=== PATIENT | male | born 1950 | race Hispanic/Latino ===

== ENCOUNTER 2017-04-05 16:42 | Emergency (ER) | payer MEDICARE ==
[2017-04-05 17:16] VITALS: BP 150/66; PULSE 68; RESP 16; TEMP 98.5; O2SAT 100
--- NOTE | 2017-04-05 18:07 | ED PDOC ---
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 Patient describes dizziness as a spinning sensation that suddenly got worse as he tries to move his head. Upon arrival to the ED, he states his dizziness started to mildly resolve on its own, but he is experiencing an associated mild headache that also has started to resolve spontaneously. He denies any associated syncope , palpitations, tinnitus, or vomiting. He further states this is not the "worse headache of his life". Past Medical History Vital Signs: Last Vital Signs Temp 98.5 F 04/05/17 17:11 Pulse 68 04/05/17 17:11 Resp 16 04/05/17 17:11 BP 150/66 04/05/17 17:11 Pulse Ox 100 04/05/17 17:11 - Medical History PMH: Diabetes, Deep Vein Thrombosis, HTN, Hypercholesterolemia - Surgical History Surgical History: No Surg Hx - Family History Family History: States: Unknown Family Hx - Social History Current smoker - smoking cessation education provided: No Alcohol: None Drugs: Denies - Immunization History Hx Tetanus Toxoid Vaccination: No Hx Influenza Vaccination: Yes Hx Pneumococcal Vaccination: Yes - Home Medications Home Medications: Ambulatory Orders Medication Instructions Recorded Lisinopril [Zestril] 10 mg PO DAILY 07/31/16 MetFORMIN [glucOPHAGE] 1,000 mg PO BID 07/31/16 Pravastatin Sodium [Pravachol] 10 mg PO DAILY 07/31/16 Glimepiride [Amaryl] 4 mg PO BID 08/09/16 Naproxen [Naprosyn] 1 tab PO BID PRN #25 tab 08/25/16 Meclizine [Meclizine*] 25 mg PO Q6 PRN #15 tab 04/05/17 - Allergies Allergies/Adverse Reactions: Allergies Allergy/AdvReac Type Severity Reaction Status Date / Time No Known Allergies Allergy Verified 04/05/17 17:11 Review of Systems ROS Statement: Except As Marked, All Systems Reviewed And Found Negative ENT: Negative for: Ear Pain Cardiovascular: Negative for: Palpitations Gastrointestinal: Negative for: Vomiting Neurological: Positive for: Headache, Dizziness Physical Exam - Reviewed Nursing Documentation Reviewed: Yes Vital Signs Reviewed: Yes - Physical Exam Appears: Positive for: Non-toxic, No Acute Distress Head Exam: Positive for: ATRAUMATIC, NORMOCEPHALIC Skin: Positive for: Normal Color. Negative for: Rash Eye Exam: Positive for: Normal appearance, EOMI, PERRL ENT: Positive for: Normal ENT Inspection. Negative for: Pharyngeal Erythema, Tonsillar Exudate, Tonsillar Swelling Neck: Positive for: Normal, Painless ROM, Supple Cardiovascular/Chest: Positive for: Regular Rate, Rhythm. Negative for: Murmur Respiratory: Positive for: Normal Breath Sounds. Negative for: Wheezing, Respiratory Distress Gastrointestinal/Abdominal: Positive for: Normal Exam, Soft. Negative for: Tenderness Extremity: Positive for: Normal ROM. Negative for: Deformity, Swelling Neurologic/Psych: Positive for: Alert, Oriented. Negative for: Motor/Sensory Deficits - Laboratory Results Result Diagrams: 04/05/17 17:50 04/05/17 17:50 - ECG O2 Sat by Pulse Oximetry: 100 - Progress Re-evaluation Time: 21:10 Condition: Re-examined, Improved Medical Decision Making Medical Decision Makin:18 Initial Impression- Vertigo; Differential diagnosis includes but not limited to : Central Vertigo (less likely but may include cerebellar stroke) vs. Peripheral Vertigo (most likely based on H&P, but possible diagnosis includes vestibular syndrome and BPV). R/o cardiac arrhythmia Initial Plan- * CT Head w/o contrast * EKG * BMP * Troponin * CBC w/ differential * Antivert 25 mg PO FINDINGS: HEMORRHAGE: No intracranial hemorrhage. BRAIN: No mass effect or edema. Mild diffuse atrophy. No evidence of acute infarct. VENTRICLES: Unremarkable. No hydrocephalus. CALVARIUM: Unremarkable. PARANASAL SINUSES: Unremarkable as visualized. No significant inflammatory changes. MASTOID AIR CELLS: Unremarkable as visualized. No inflammatory changes. OTHER FINDINGS: None. IMPRESSION: No intracranial mass, hemorrhage or evidence of acute infarct Documented by Antonio Edmond, acting as a scribe for Aung Lagunas MD. All medical record entries made by the Scribe were at my direction and personally dictated by me. I have reviewed the chart and agree that the record accurately reflects my personal performance of the history, physical exam, medical decision making, and the department course for this patient. I have also personally directed, reviewed, and agree with the discharge instructions and disposition. Disposition - Clinical Impression Clinical Impression: Dizziness - Patient ED Disposition Is Patient to be Admitted: No Doctor Will See Patient In The: Office Counseled Patient/Family Regarding: Studies Performed, Diagnosis, Need For Followup - Disposition Referrals: [facility] [Outside] Disposition: Routine/Home Disposition Time: 21:10 Condition: GOOD Additional Instructions: Follow up with your PCP in 2-3 days. Prescriptions: Meclizine [Meclizine*] 25 mg PO Q6 PRN #15 tab PRN Reason: Dizziness Instructions: Vertigo (ED)
[2017-04-05 18:12] LABS: BASO % 0.1 % (0.0-2.0); EOS # 0.1 K/uL (0.0-0.7); EOS % 1.3 % (0.0-4.0); LYMPH # 1.1 K/uL (1.0-4.3); LYMPH % 15.5 % (20.0-40.0); MEAN CELL VOLUME 89.3 fl (80.0-94.0); MEAN CORPUSCULAR HEMOGLOBIN 29.5 pg (27.0-31.0); MEAN PLATELET VOLUME 7.9 fl (7.2-11.7); MONO # 0.6 K/uL (0.0-0.8); MONO % 7.9 % (0.0-10.0); NEUT # 5.3 K/uL (1.8-7.0); NEUT % 75.2 % (50.0-75.0); NRBC % 0.1 % (0.0-0.0); RBC 4.76 Mil/uL (4.40-5.90); RED CELL DISTRIBUTION WIDTH 13.7 % (11.5-14.5); WHITE BLOOD COUNT 7.1 K/uL (4.8-10.8)
[2017-04-05 18:25] LABS: BLOOD UREA NITROGEN 10 mg/dl (9-20); CALCIUM 9.5 mg/dL (8.4-10.2); GFR AFRICAN-AMERICAN > 60; GFR NON-AFRICAN AMERICAN > 60
--- NOTE | 2017-04-05 18:35 | CT ---
PROCEDURE: CT HEAD WITHOUT CONTRAST. HISTORY: dizziness COMPARISON: Not available TECHNIQUE: Axial computed tomography images were obtained through the head/brain without intravenous contrast. Radiation dose: Total exam DLP = 877.25 mGy-cm. This CT exam was performed using one or more of the following dose reduction techniques: Automated exposure control, adjustment of the mA and/or kV according to patient size, and/or use of iterative reconstruction technique. FINDINGS: HEMORRHAGE: No intracranial hemorrhage. BRAIN: No mass effect or edema. Mild diffuse atrophy. No evidence of acute infarct. VENTRICLES: Unremarkable. No hydrocephalus. CALVARIUM: Unremarkable. PARANASAL SINUSES: Unremarkable as visualized. No significant inflammatory changes. MASTOID AIR CELLS: Unremarkable as visualized. No inflammatory changes. OTHER FINDINGS: None. IMPRESSION: No intracranial mass, hemorrhage or evidence of acute infarct.
--- NOTE | 2017-04-07 11:47 | CARD ---
APPROVED REPORT EKG Measurement Heart [id number] <Conclusion> Sinus bradycardia Otherwise normal ECG
== END 2017-04-05 21:57 | disposition home or self-care (01) ==
LOC: H.ER 16:42
DX: R42 Dizziness and giddiness (principal); E11.9 Type 2 diabetes mellitus without complications; E78.00 Pure hypercholesterolemia, unspecified; I10 Essential (primary) hypertension; Z79.84 Long term (current) use of oral hypoglycemic drugs; Z86.718 Personal history of other venous thrombosis and embolism; Z79.899 Other long term (current) drug therapy

== ENCOUNTER 2017-06-19 22:22 | Emergency (ER) | payer MEDICARE ==
[2017-06-19] MEDS ORDERED: Sodium Chloride 0.9% 500 ML IV STA (22:49)
--- NOTE | 2017-06-19 22:58 | ED PDOC ---
Hyperglycemia/Hypoglycemia Time Seen by Provider: 06/19/17 22:47 Chief Complaint (Nursing): Abnormal Labs : The patient does not have any of the infectious symptoms listed except for those marked. Additional Complaint(s): 67yo M nonsmoker with PMHx DMT2 and HTN c/o accucheck at home 53 after dinner. Usually check BS after dinners. Denies any symptoms related to hypoglycemia; denies nausea, vomiting, dizziness, lightheadedness. Compliant with medications including glimiperide AM, januvia AM, metformin BID, lisinopril. Was able to walk to the ED 13-15 blocks, denies chest pain, SOB, GARZA. Denies falls. PCP Dr. Mullins Past Medical History Reviewed: Historical Data, Nursing Documentation, Vital Signs Vital Signs: Last Vital Signs Temp 97.7 F 06/19/17 22:24 Pulse 78 06/19/17 22:24 Resp 26 H 06/19/17 22:24 BP 150/80 06/19/17 22:24 Pulse Ox 98 06/19/17 22:24 - Medical History PMH: Diabetes, Deep Vein Thrombosis, HTN, Hypercholesterolemia - Surgical History Surgical History: No Surg Hx - Family History Family History: States: Unknown Family Hx - Social History Current smoker - smoking cessation education provided: No - Immunization History Hx Tetanus Toxoid Vaccination: No Hx Influenza Vaccination: Yes Hx Pneumococcal Vaccination: Yes - Home Medications Home Medications: Ambulatory Orders Medication Instructions Recorded Lisinopril [Zestril] 10 mg PO DAILY 07/31/16 MetFORMIN [glucOPHAGE] 1,000 mg PO BID 07/31/16 Pravastatin Sodium [Pravachol] 10 mg PO DAILY 07/31/16 Glimepiride [Amaryl] 4 mg PO BID 08/09/16 Naproxen [Naprosyn] 1 tab PO BID PRN #25 tab 08/25/16 Meclizine [Meclizine*] 25 mg PO Q6 PRN #15 tab 04/05/17 - Allergies Allergies/Adverse Reactions: Allergies Allergy/AdvReac Type Severity Reaction Status Date / Time No Known Allergies Allergy Verified 06/19/17 22:24 Review of Systems ROS Statement: Except As Marked, All Systems Reviewed And Found Negative Physical Exam - Reviewed Nursing Documentation Reviewed: Yes Vital Signs Reviewed: Yes - Physical Exam Appears: Positive for: Well, Non-toxic, No Acute Distress Head Exam: Positive for: ATRAUMATIC, NORMAL INSPECTION Skin: Positive for: Warm, Dry Eye Exam: Positive for: Normal appearance, EOMI ENT: Negative for: Pharyngeal Erythema, Tonsillar Exudate Neck: Positive for: Normal, Supple Cardiovascular/Chest: Positive for: Regular Rate, Rhythm. Negative for: Murmur Respiratory: Positive for: Normal Breath Sounds. Negative for: Wheezing Gastrointestinal/Abdominal: Positive for: Normal Exam, Soft Back: Positive for: Normal Inspection Extremity: Positive for: Normal ROM. Negative for: Pedal Edema Lymphatic: Positive for: Normal Exam, Adenopathy Neurologic/Psych: Positive for: Alert, Oriented - Laboratory Results Result Diagrams: 06/19/17 23:05 06/19/17 23:05 - ECG O2 Sat by Pulse Oximetry: 98 Medical Decision Making Medical Decision Makin DDx asymptomatic hypoglycemia, normoglycemia accucheck 70 CBC, CMP, troponin EKG NS IVF 100cc/hr 0100 reassessment CBC, CMP WNL troponin WNL EKG no acute change accucheck trending upwards 0116 reassessment accucheck 63, asymptomatic PO intake, juice and sandwich well tolerated d/c home FU Dr. Mullins Disposition - Clinical Impression Clinical Impression: Low blood sugar reading - Disposition Referrals: Dakota Mullins MD [Staff Provider] - Disposition Time: 01:20 Condition: STABLE Forms: [facility] (Turkmen)
[2017-06-19 23:08] LABS: BASO % 0.2 % (0.0-2.0); EOS # 0.1 K/uL (0.0-0.7); EOS % 1.1 % (0.0-4.0); HEMATOCRIT 40.3 % (35.0-51.0); LYMPH # 1.4 K/uL (1.0-4.3); LYMPH % 16.9 % (20.0-40.0); MEAN CELL VOLUME 88.5 fl (80.0-94.0); MEAN CORPUSCULAR HEMOGLOBIN 30.3 pg (27.0-31.0); MEAN CORPUSCULAR HGB CONC 34.2 g/dL (33.0-37.0); MEAN PLATELET VOLUME 7.6 fl (7.2-11.7); MONO # 0.5 K/uL (0.0-0.8); MONO % 6.8 % (0.0-10.0); RED CELL DISTRIBUTION WIDTH 13.4 % (11.5-14.5); WHITE BLOOD COUNT 8.1 K/uL (4.8-10.8)
[2017-06-19 23:49] LABS: ALB/GLOB RATIO 1.5 (1.0-2.1); ALKALINE PHOSPHATASE 48 U/L (38-126); ALT/SGPT 40 U/L (21-72); AST/SGOT 37 U/L (17-59); BILIRUBIN,TOTAL 0.3 mg/dl (0.2-1.3); BLOOD UREA NITROGEN 16 mg/dl (9-20); CALCIUM 9.6 mg/dL (8.4-10.2); CARBON DIOXIDE 28 mmol/L (22-30); CHLORIDE 102 mmol/L (98-107); GFR AFRICAN-AMERICAN > 60; GLUCOSE,RANDOM 80 mg/dL (75-110); POTASSIUM 3.9 MMOL/L (3.6-5.0); SODIUM 139 mmol/l (132-148); TOTAL PROTEIN 6.6 G/DL (6.3-8.2)
[2017-06-20 01:37] VITALS: BP 127/56; PULSE 54; RESP 18; TEMP 98.7; O2SAT 100
--- NOTE | 2017-06-20 07:40 | CARD ---
APPROVED REPORT EKG Measurement Heart [id number] [place] [id number] <Conclusion> Normal sinus rhythm normal ECG
== END 2017-06-20 02:00 | disposition home or self-care (01) ==
LOC: H.ER 22:22
DX: E16.2 Hypoglycemia, unspecified (principal); E11.8 Type 2 diabetes mellitus with unspecified complications; I82.409 Acute embolism and thrombosis of unspecified deep veins of unspecified lower extremity; I10 Essential (primary) hypertension
CPT/HCPCS: 80053; 82948; 84484; 85025; 93005; 99283; J7040

== ENCOUNTER 2017-07-23 13:52 | Emergency (ER) | payer MEDICARE ==
[2017-07-23 14:01] VITALS: RESP 16; O2SAT 99
[2017-07-23] MEDS ORDERED: Sodium Chloride 0.9% 1,000 ML IV STA (14:20)
[2017-07-23 14:41] LABS: BASO % 0.3 % (0.0-2.0); EOS # 0.1 K/uL (0.0-0.7); EOS % 1.1 % (0.0-4.0); HEMATOCRIT 43.6 % (35.0-51.0); LYMPH # 1.4 K/uL (1.0-4.3); LYMPH % 23.2 % (20.0-40.0); MEAN CORPUSCULAR HEMOGLOBIN 30.1 pg (27.0-31.0); MEAN CORPUSCULAR HGB CONC 33.8 g/dL (33.0-37.0); MEAN PLATELET VOLUME 7.5 fl (7.2-11.7); MONO # 0.5 K/uL (0.0-0.8); MONO % 7.8 % (0.0-10.0); NEUT # 4.1 K/uL (1.8-7.0); NEUT % 67.6 % (50.0-75.0); NRBC % 0.1 % (0.0-0.0); RED CELL DISTRIBUTION WIDTH 13.7 % (11.5-14.5)
[2017-07-23 14:44] LABS: VENOUS BLOOD GAS BASE EXCESS 4.6 mmol/L (0.0-2.0); VENOUS BLOOD GAS PCO2 56 mmHg (40-60); VENOUS BLOOD PH 7.36 (7.32-7.43)
[2017-07-23 14:54] LABS: ALB/GLOB RATIO 1.5 (1.0-2.1); ALKALINE PHOSPHATASE 53 U/L (38-126); ALT/SGPT 49 U/L (21-72); AST/SGOT 37 U/L (17-59); BILIRUBIN,TOTAL 0.6 mg/dl (0.2-1.3); BLOOD UREA NITROGEN 9 mg/dl (9-20); CALCIUM 9.2 mg/dL (8.4-10.2); CARBON DIOXIDE 26 mmol/L (22-30); CHLORIDE 101 mmol/L (98-107); GFR AFRICAN-AMERICAN > 60; GLUCOSE,RANDOM 216 mg/dL (75-110); POTASSIUM 3.9 MMOL/L (3.6-5.0); SODIUM 139 mmol/l (132-148); TOTAL PROTEIN 7.3 G/DL (6.3-8.2)
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
--- NOTE | 2017-07-23 17:22 | US ---
PROCEDURE: Right lower extremity venous duplex Doppler. HISTORY: RLE swelling Right lower extremity edema COMPARISON: None available. TECHNIQUE: Right Common femoral, superficial femoral, popliteal and posterior tibial veins were evaluated. Flow was assessed with color Doppler, compressibility, assessment of phasic flow and augmentation response. FINDINGS: COMMON FEMORAL VEIN: Unremarkable. SUPERFICIAL FEMORAL VEIN: Unremarkable. POPLITEAL VEIN: Unremarkable. POSTERIOR TIBIAL VEIN: Unremarkable. OTHER FINDINGS: None. IMPRESSION: No evidence of deep venous thrombosis in the right lower extremity.
[2017-07-23 18:33] VITALS: BP 144/62; PULSE 66; TEMP 97.1
== END 2017-07-23 18:33 | disposition home or self-care (01) ==
LOC: H.ER 13:52
DX: M79.605 Pain in left leg (principal)
CPT/HCPCS: 80053; 82803; 85025; 93971; 99282; J7040

== ENCOUNTER 2017-11-08 11:43 | Emergency (ER) | payer MEDICARE, OTHER ==
[2017-11-08 12:53] VITALS: BP 143/65; PULSE 68; RESP 16; TEMP 97.6; O2SAT 98
--- NOTE | 2017-11-08 14:22 | ED PDOC ---
HPI: General Adult Time Seen by Provider: 11/08/17 13:56 Chief Complaint (Nursing): GI Problem History Per: Patient Additional Complaint(s): Pt. states since last night he's had non-bloody watery yellow colored diarrhea associated with intermittent lower abdominal cramping. Reports 6-7 episodes of diarrhea. Abdominal pain has resolved. Denies recent travel, sick contacts, melena, hematochezia, BRBPR, fever, nausea, vomiting. Past Medical History Reviewed: Historical Data, Nursing Documentation, Vital Signs Vital Signs: Last Vital Signs Temp 97.6 F 11/08/17 12:51 Pulse 68 11/08/17 12:51 Resp 16 11/08/17 12:51 BP 143/65 11/08/17 12:51 Pulse Ox 98 11/08/17 17:57 - Medical History PMH: Diabetes (Type 2), Deep Vein Thrombosis, HTN, Hypercholesterolemia - Surgical History Surgical History: Hernia Repair (hemiorrhaphy) - Family History Family History: States: No Known Family Hx - Immunization History Hx Tetanus Toxoid Vaccination: No Hx Influenza Vaccination: Yes Hx Pneumococcal Vaccination: Yes - Home Medications Home Medications: Ambulatory Orders Medication Instructions Recorded Lisinopril [Zestril] 10 mg PO DAILY 07/31/16 MetFORMIN [glucOPHAGE] 1,000 mg PO BID 07/31/16 Pravastatin Sodium [Pravachol] 10 mg PO DAILY 07/31/16 Glimepiride [Amaryl] 4 mg PO BID 08/09/16 Naproxen [Naprosyn] 1 tab PO BID PRN #25 tab 08/25/16 Meclizine [Meclizine*] 25 mg PO Q6 PRN #15 tab 04/05/17 Naproxen [Naprosyn] 500 mg PO BID PRN #15 tablet 07/23/17 Dicyclomine [Bentyl] 20 mg PO Q8 PRN #15 tab 11/08/17 - Allergies Allergies/Adverse Reactions: Allergies Allergy/AdvReac Type Severity Reaction Status Date / Time No Known Allergies Allergy Verified 11/08/17 12:51 Review of Systems ROS Statement: Except As Marked, All Systems Reviewed And Found Negative Gastrointestinal: Positive for: Abdominal Pain, Diarrhea Physical Exam - Physical Exam Appears: Positive for: Well, Non-toxic, No Acute Distress Skin: Positive for: Normal Color, Warm. Negative for: Rash Eye Exam: Positive for: Normal appearance Cardiovascular/Chest: Positive for: Regular Rate, Rhythm Respiratory: Positive for: CNT, Normal Breath Sounds Gastrointestinal/Abdominal: Positive for: Normal Exam, Soft. Negative for: Tenderness, Distended Back: Positive for: Normal Inspection. Negative for: L CVA Tenderness, R CVA Tenderness Neurologic/Psych: Positive for: Alert, Oriented - Laboratory Results Result Diagrams: 11/08/17 15:00 11/08/17 15:00 - ECG O2 Sat by Pulse Oximetry: 98 - Progress ED Course And Treament: Labs ordered. IV NS bolus ordered. On re-evaluation, pt. in no distress. Reports feeling better. States he has had no episodes of diarrhea or pain while in ED. Abd remains soft and non-tender to deep palpation. Disposition - Clinical Impression Clinical Impression: Diarrhea - Patient ED Disposition Is Patient to be Admitted: No - Disposition Referrals: [facility] [Outside] [facility] [Outside] Disposition: Routine/Home Disposition Time: 16:11 Condition: IMPROVED Prescriptions: Dicyclomine [Bentyl] 20 mg PO Q8 PRN #15 tab PRN Reason: abdominal pain Instructions: Acute Diarrhea (ED) Forms: [employer] (Bulgarian) Print Language: TELUGU
[2017-11-08] MEDS: Sodium Chloride 0.9% 1,000 ML IV STA (15:04)
--- NOTE | 2017-11-08 15:35 | RAD ---
HISTORY: abdominal pain COMPARISON: No prior. FINDINGS: LUNGS: The lungs are well inflated and clear. PLEURA: No significant pleural effusion identified, no pneumothorax apparent. CARDIOVASCULAR: Normal. OSSEOUS STRUCTURES: No significant abnormalities. VISUALIZED UPPER ABDOMEN: Normal. OTHER FINDINGS: None. IMPRESSION: No active pulmonary disease.
[2017-11-08 15:45] LABS: URINE BACTERIA RARE (<OCC); URINE BILIRUBIN NEGATIVE (NEGATIVE); URINE BLOOD NEGATIVE (NEGATIVE); URINE CLARITY CLEAR (Clear); URINE COLOR YELLOW (YELLOW); URINE GLUCOSE (UA) 150 mg/dL (Normal); URINE LEUKOCYTE ESTERASE NEG Leu/uL (Negative); URINE NITRATE NEGATIVE (NEGATIVE); URINE PROTEIN NEGATIVE (NEGATIVE); URINE UROBILINOGEN 0.2-1.0 mg/dL (0.2-1.0)
[2017-11-08 15:52] LABS: BASO % 0.2 % (0.0-2.0); EOS # 0.1 K/uL (0.0-0.7); EOS % 2.1 % (0.0-4.0); HEMOGLOBIN 14.5 g/dL (12.0-18.0); LYMPH # 1.1 K/uL (1.0-4.3); LYMPH % 19.6 % (20.0-40.0); MEAN CELL VOLUME 89.6 fl (80.0-94.0); MEAN CORPUSCULAR HEMOGLOBIN 29.4 pg (27.0-31.0); MEAN CORPUSCULAR HGB CONC 32.9 g/dL (33.0-37.0); MEAN PLATELET VOLUME 8.1 fl (7.2-11.7); MONO # 0.5 K/uL (0.0-0.8); NEUT # 3.7 K/uL (1.8-7.0); NEUT % 69.1 % (50.0-75.0); NRBC % 0.3 % (0.0-0.0); RBC 4.93 Mil/uL (4.40-5.90); RED CELL DISTRIBUTION WIDTH 13.7 % (11.5-14.5); WHITE BLOOD COUNT 5.4 K/uL (4.8-10.8)
[2017-11-08 15:58] LABS: ALB/GLOB RATIO 1.4 (1.0-2.1); ALBUMIN 4.4 g/dL (3.5-5.0); ALT/SGPT 47 U/L (21-72); AST/SGOT 42 U/L (17-59); BLOOD UREA NITROGEN 12 mg/dl (9-20); CALCIUM 9.3 mg/dL (8.4-10.2); GFR AFRICAN-AMERICAN > 60; GFR NON-AFRICAN AMERICAN > 60
== END 2017-11-08 18:21 | disposition home or self-care (01) ==
LOC: H.ER 11:43
DX: R10.9 Unspecified abdominal pain (principal); R19.7 Diarrhea, unspecified; E11.9 Type 2 diabetes mellitus without complications; E78.00 Pure hypercholesterolemia, unspecified; I10 Essential (primary) hypertension; Z79.84 Long term (current) use of oral hypoglycemic drugs; Z86.718 Personal history of other venous thrombosis and embolism
CPT/HCPCS: 71045; 80053; 81003; 85025; 87040; 99283; J7040

== ENCOUNTER 2018-01-24 08:45 | Day surgery (SDC) | payer MEDICARE, SELFPAY ==
[2018-01-19 09:57] VITALS: RESP 20
[2018-01-19 10:00] VITALS: BMI 29.9
[2018-01-24] MEDS ORDERED: Tropicamide 1% Opht 150 DROP/15 ML OS SCH (10:00)
[2018-01-24] MEDS ORDERED: Flurbiprofen 0.03% Opht SOLN OS SCH (10:00)
[2018-01-24] MEDS ORDERED: Phenylephrine 2.5% Opht Soln OS SCH (10:00)
[2018-01-24 10:26] VITALS: BP 153/74; PULSE 68; TEMP 97.5; O2SAT 96
[2018-01-24] MEDS ORDERED: Maxitrol Opht Susp ONE (12:51)
[2018-01-24] MEDS ORDERED: EPINEPHrine 1 mg/ml (1:1000) Inj ONE (12:51)
[2018-01-24] MEDS ORDERED: Tetracaine 0.5% Ophth 2 ML BOTTLE ONE (12:51)
[2018-01-24] MEDS ORDERED: CA CL/K CL/NA CL 500 ML IR ONE (12:52)
[2018-01-24] MEDS ORDERED: BSS 15 ML 15 ML IR ONE (12:52)
[2018-01-24] MEDS ORDERED: Pilocarpine 1% Opht Soln ONE (12:52)
[2018-01-24] MEDS ORDERED: Lidocaine 1% 20 MG/2 ML PF AMP ONE (12:52)
[2018-01-24] MEDS ORDERED: Povidone Iodine 5% Opht SOLUTION ONE (12:53)
[2018-01-24] MEDS ORDERED: Chondroitin/Hyaluronate Opth Syringe KIT (0.55 ml-0.5 ml) IO ONE (12:53)
[2018-01-24] MEDS ORDERED: BSS 15 ML 30 ML IR ONE (12:53)
== END 2018-01-24 16:00 | disposition home or self-care (01) ==
LOC: H.OPSURG 08:45
PROVIDERS: ATTEND Ophthalmology
DX: Z02.89 Encounter for other administrative examinations (principal)

== ENCOUNTER 2018-09-04 14:08 | Emergency (ER) | payer MEDICARE, SELFPAY ==
[2018-09-04 14:08] VITALS: BMI 29.9
[2018-09-04] MEDS ORDERED: Tetanus/Diphtheria Toxoids 0.5 ml Syringe IM ONE ×2 (15:33→16:06)
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
--- NOTE | 2018-09-04 16:11 | CT ---
Date of service: 09/04/2018 PROCEDURE: CT HEAD WITHOUT CONTRAST. HISTORY: fall head injury COMPARISON: Unenhanced head CT 04/05/2017. TECHNIQUE: Axial computed tomography images were obtained through the head/brain without intravenous contrast. Radiation dose: Total exam DLP = 906.93 mGy-cm. This CT exam was performed using one or more of the following dose reduction techniques: Automated exposure control, adjustment of the mA and/or kV according to patient size, and/or use of iterative reconstruction technique. FINDINGS: HEMORRHAGE: No intracranial hemorrhage. BRAIN: Good corticomedullary differentiation is seen. Reiterated mild diffuse cerebral atrophy and chronic microangiopathy. No suspicious extra-axial fluid collection is identified and the midline brain anatomy appears grossly nonfocal as imaged. No mass effect identified. VENTRICLES: Unremarkable. No hydrocephalus. CALVARIUM: No destructive bony lesion or displaced fracture identified including through the skullbase. PARANASAL SINUSES: Unremarkable as visualized. No significant inflammatory changes. MASTOID AIR CELLS: Unremarkable as visualized. No inflammatory changes. OTHER FINDINGS: None. IMPRESSION: Stable age-related degenerative changes are identified as discussed above, compared to CT 04/05/2017. No fracture appreciable.
--- NOTE | 2018-09-04 16:51 | CT ---
Date of service: 09/04/2018 PROCEDURE: CT Cervical Spine without contrast HISTORY: fall head injury COMPARISON: None available. TECHNIQUE: Axial computed tomography images were obtained of the cervical spine without the use of intravenous contrast. Coronal and sagittal reformatted images were created and reviewed. Radiation dose: Total exam DLP = 325.64 mGy-cm. This CT exam was performed using one or more of the following dose reduction techniques: Automated exposure control, adjustment of the mA and/or kV according to patient size, and/or use of iterative reconstruction technique. FINDINGS: VERTEBRAE: No fracture or spondylolisthesis is appreciated. There is straightening of the cervical curvature with apparent likely degenerative fusion of C4-5 and C5-6 and potentially C6-7. No destructive bony lesion appreciable. The odontoid process is intact as well as the C1-2 articulation with the craniocervical junction appears unremarkable. DISCS/SPINAL CANAL/NEURAL FORAMINA: At C2-3, no significant stenosis identified. At C3-4, moderate to severe right and mild to moderate degenerative neural foraminal stenoses are identified due to uncovertebral and facet joint degenerative arthropathy. A disc osteophyte complex identified without significant central canal stenosis. At C4-5, moderate bilateral degenerative neural foraminal stenoses are identified with a disc osteophyte complex present without causing significant central canal stenosis. At C5-6, bilateral moderate to severe degenerative neural foraminal stenoses are identified with asymmetric disc osteophyte complex greater the left and right sides causing mild left levi canal stenosis but none at the right. At C6-7, an additional disc osteophyte complex is appreciated causing mild central stenosis with mild degenerative bilateral neural foraminal stenosis also present. At C7-T1, no significant stenosis appreciated though minimal disc osteophyte complex is appreciated. No gross disc herniation though MRI is more sensitive and can be performed for added evaluation. PARASPINAL SOFT TISSUES: Unremarkable. OTHER FINDINGS: None. IMPRESSION: 1. No fracture or spondylolisthesis. Straightened cervical curvature with multilevel likely degenerative cervical spinal fusion as C4-5, C5-6 and likely C6-7. 2. Multilevel degenerative neural foraminal stenoses are seen from C3-4 to C6-7 inclusively vary from mild to moderate to severe as discussed above. Limited left levi canal stenosis C6-7 due to asymmetric posterior osteophytic disc osteophyte complex. 3. No gross disc herniation appreciable. MRI can be utilized for greater characterization if clinically warranted.
[2018-09-04 17:54] VITALS: BP 134/67; PULSE 78; RESP 16; TEMP 97.8; O2SAT 98
== END 2018-09-04 17:54 | disposition home or self-care (01) ==
LOC: H.ER 14:08
DX: S09.90XA Unspecified injury of head, initial encounter (principal); Z79.84 Long term (current) use of oral hypoglycemic drugs; E11.9 Type 2 diabetes mellitus without complications; I10 Essential (primary) hypertension; S01.81XA Laceration without foreign body of other part of head, initial encounter; Z86.718 Personal history of other venous thrombosis and embolism; Z87.891 Personal history of nicotine dependence; Z23 Encounter for immunization; W01.10XA Fall on same level from slipping, tripping and stumbling with subsequent striking against unspecified object, initial encounter; Y93.E1 Activity, personal bathing and showering

== ENCOUNTER 2018-09-04 20:12 | Emergency (ER) | payer MEDICARE ==
[2018-09-04 20:12] VITALS: BMI 29.9
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
[2018-09-04 23:16] VITALS: RESP 18; O2SAT 97
[2018-09-05 01:00] VITALS: BP 149/77; PULSE 59; TEMP 98.1
== END 2018-09-05 01:10 | disposition home or self-care (01) ==
LOC: H.ER 20:12
DX: S09.90XA Unspecified injury of head, initial encounter (principal); E11.9 Type 2 diabetes mellitus without complications; Z79.84 Long term (current) use of oral hypoglycemic drugs; Z86.718 Personal history of other venous thrombosis and embolism; I10 Essential (primary) hypertension; W01.10XA Fall on same level from slipping, tripping and stumbling with subsequent striking against unspecified object, initial encounter; Y93.01 Activity, walking, marching and hiking

== ENCOUNTER 2018-09-07 11:11 | Emergency (ER) | payer MEDICARE ==
[2018-09-07 11:12] VITALS: BMI 29.9
[2018-09-07 11:40] VITALS: TEMP 98.1
[2018-09-07 12:45] VITALS: BP 135/65; PULSE 61; RESP 19; O2SAT 99
--- NOTE | 2018-09-07 12:59 | CT ---
Date of service: 09/07/2018 PROCEDURE: CT HEAD WITHOUT CONTRAST. HISTORY: head ache following two head trauma COMPARISON: 09/04/2018 TECHNIQUE: Axial computed tomography images were obtained through the head/brain without intravenous contrast. Radiation dose: Total exam DLP = 935.95 mGy-cm. This CT exam was performed using one or more of the following dose reduction techniques: Automated exposure control, adjustment of the mA and/or kV according to patient size, and/or use of iterative reconstruction technique. FINDINGS: HEMORRHAGE: No intracranial hemorrhage. BRAIN: No mass effect or edema. Mild diffuse atrophy consistent with age. Mild periventricular white matter lucency consistent with chronic microvascular white matter ischemic change. No evidence of acute infarct. VENTRICLES: No hydrocephalus. No midline shift. Mild dilatation consistent with degree of surrounding parenchymal loss. CALVARIUM: Unremarkable. PARANASAL SINUSES: Unremarkable as visualized. No significant inflammatory changes. MASTOID AIR CELLS: Unremarkable as visualized. No inflammatory changes. OTHER FINDINGS: None. IMPRESSION: No intracranial mass, hemorrhage or evidence of acute infarct. Age related atrophy and mild chronic white matter ischemic change.
--- NOTE | 2018-09-07 14:24 | ED PDOC ---
HPI: General Adult Time Seen by Provider: 09/07/18 11:40 Chief Complaint (Nursing): Trauma Chief Complaint (Provider): Headache, nausea and b/l eye pain History Per: Patient History/Exam Limitations: no limitations Onset/Duration Of Symptoms: Hrs (this morning) Current Symptoms Are (Timing): Still Present Additional Complaint(s): Evan Valdez is a 68 year old male, with a past medical history of HTN and diabetes, who presents to the emergency department after x2 mechanical falls onset x3 days ago. Patient was seen by myself on Tuesday night after 2nd fall. The 1st fall happened earlier on Tuesday resulting in a closed laceration to the forehead. Later on that evening while trying to walk home, patient had a second fall without LOC. He was seen after 2nd fall and observed for x5 hrs with no signs of concussion or other neurological injuries. Transport was arranged to take him home, during this time patient was feeling fine with no confusion or LOC. However, patient reports this morning he started to have a headache with pain to bilateral eyes and nausea. Based on return precautions previously discussed, he decided to come to the ER. He denies any new trauma, fever, chills or other medical complaints. PMD: Dr. Mccoy Past Medical History Reviewed: Historical Data, Nursing Documentation, Vital Signs Vital Signs: Last Vital Signs Temp 98.1 F 09/07/18 11:37 Pulse 61 09/07/18 12:44 Resp 19 09/07/18 12:44 BP 135/65 09/07/18 12:44 Pulse Ox 99 09/07/18 12:44 - Medical History PMH: Diabetes (Type 2), Deep Vein Thrombosis (x4 yrs ago but resolved), HTN, Hypercholesterolemia Denies: Chronic Kidney Disease - Surgical History Surgical History: Hernia Repair (hemiorrhaphy) - Family History Family History: States: Unknown Family Hx - Immunization History Hx Tetanus Toxoid Vaccination: No Hx Influenza Vaccination: Yes Hx Pneumococcal Vaccination: Yes - Home Medications Home Medications: Ambulatory Orders Medication Instructions Recorded Lisinopril [Zestril] 10 mg PO DAILY 07/31/16 MetFORMIN [glucOPHAGE] 1,000 mg PO DAILY 07/31/16 Pravastatin Sodium [Pravachol] 10 mg PO DAILY 07/31/16 Glimepiride [Amaryl] 4 mg PO BID 10/31/16 Cetirizine HCl [Zyrtec] 1 tab PO HS 01/24/18 Loratadine [Claritin] 10 mg PO DAILY 01/24/18 SITagliptin [Januvia] 100 mg PO DAILY 01/24/18 Acetaminophen [Tylenol] 650 mg PO Q4 PRN #100 capsule 09/07/18 - Allergies Allergies/Adverse Reactions: Allergies Allergy/AdvReac Type Severity Reaction Status Date / Time No Known Allergies Allergy Verified 09/07/18 11:35 Review of Systems ROS Statement: Except As Marked, All Systems Reviewed And Found Negative Constitutional: Negative for: Fever, Chills Eyes: Positive for: Pain (b/l) Gastrointestinal: Positive for: Nausea Skin: Positive for: Other (healing laceration to forehead) Neurological: Positive for: Headache. Negative for: Confusion Physical Exam - Reviewed Nursing Documentation Reviewed: Yes Vital Signs Reviewed: Yes - Physical Exam Appears: Positive for: No Acute Distress Head Exam: Positive for: NORMAL INSPECTION, NORMOCEPHALIC. Negative for: ATRAUMATIC (Well healing wound to left forehead with resolving periorbital ecchymosis) Skin: Positive for: Normal Color, Warm, Dry Eye Exam: Positive for: Normal appearance, EOMI, PERRL ENT: Positive for: Normal ENT Inspection, Other (well healing abrasions to the left face with no signs of infection) Neck: Positive for: Normal, Painless ROM, Supple Cardiovascular/Chest: Positive for: Regular Rate, Rhythm. Negative for: Murmur Respiratory: Positive for: Normal Breath Sounds. Negative for: Respiratory Distress Gastrointestinal/Abdominal: Positive for: Normal Exam, Soft. Negative for: Tenderness, Guarding, Rebound Back: Positive for: Normal Inspection. Negative for: L CVA Tenderness, R CVA Tenderness, Vertebral Tenderness (No tenderness to palpation of the spine) Extremity: Positive for: Normal ROM (upper and lower extremities). Negative for: Deformity, Swelling Neurologic/Psych: Positive for: Alert, Oriented. Negative for: Motor/Sensory Deficits - ECG O2 Sat by Pulse Oximetry: 99 (RA) Pulse Ox Interpretation: Normal Medical Decision Making Medical Decision Making: Time: 11:40 Initial Impression: Work up for intracranial injury slowly progressing from previous injuries. CT brain, Tylenol for pain and reassess patient. Initial Plan: --Head w/o contrast [CT] --Tylenol 325 mg tab 650 mg PO --Reevaluation 12:[address] FINDINGS: HEMORRHAGE: No intracranial hemorrhage. BRAIN: No mass effect or edema. Mild diffuse atrophy consistent with age. Mild periventricular white matter lucency consistent with chronic microvascular white matter ischemic change. No evidence of acute infarct. VENTRICLES: No hydrocephalus. No midline shift. Mild dilatation consistent with degree of surrounding parenchymal loss. CALVARIUM: Unremarkable. PARANASAL SINUSES: Unremarkable as visualized. No significant inflammatory changes. MASTOID AIR CELLS: Unremarkable as visualized. No inflammatory changes. OTHER FINDINGS: None. IMPRESSION: No intracranial mass, hemorrhage or evidence of acute infarct. Age related atrophy and mild chronic white matter ischemic change. 14:15 -CT shows no acute injuries. Pain resolved with Tylenol. Patient already has an appointment with PMD, Dr. Mccoy, next month. Discussed getting in to see Dr. Mccoy sooner if he starts having new symptoms or returning to the ED. Patient states there is still light outside and its not icy, thus feels comfortable walking to his house in the [facility]. He received Flu shot at the beginning of the month. Patient is medically stable for discharge home with prescription for Tylenol. ----- Scribe Attestation: Documented by Sumit Castillo, acting as a scribe for Cathie Dean MD. Provider Scribe Attestation: All medical record entries made by the Scribe were at my direction and personally dictated by me. I have reviewed the chart and agree that the record accurately reflects my personal performance of the history, physical exam, medical decision making, and the department course for this patient. I have also personally directed, reviewed, and agree with the discharge instructions and disposition. Disposition - Clinical Impression Clinical Impression: Head injury, Headache - Disposition Disposition: Routine/Home Disposition Time: 14:15 Condition: STABLE Additional Instructions: Increase water intake. Take Tylenol as needed for pain. Follow up with Dr. Mccoy as previously scheduled. Return to the emergency department if symptoms worsen. Prescriptions: Acetaminophen [Tylenol] 650 mg PO Q4 PRN #100 capsule PRN Reason: Pain, Moderate (4-7) Instructions: Concussion in Adults, Minor Head Injury (DC), Headache, Adult (DC) Forms: [employer] (Niuean) Print Language: CHILEAN
== END 2018-09-07 14:26 | disposition home or self-care (01) ==
LOC: H.ER 11:11
DX: R51 Headache (principal); S09.90XA Unspecified injury of head, initial encounter; R29.6 Repeated falls; E11.9 Type 2 diabetes mellitus without complications; E78.00 Pure hypercholesterolemia, unspecified; I10 Essential (primary) hypertension; Z79.84 Long term (current) use of oral hypoglycemic drugs; Z86.718 Personal history of other venous thrombosis and embolism

== ENCOUNTER 2018-11-02 11:29 | Emergency (ER) | payer MEDICARE ==
[2018-11-02 11:32] VITALS: BMI 31.5
[2018-11-02 11:33] VITALS: BP 139/80; PULSE 86; RESP 18; TEMP 98; O2SAT 98
[2018-11-02] MEDS ORDERED: Lidocaine 1% (10 ml) Inj INFIL STA (12:24)
[2018-11-02] MEDS ORDERED: Lidocaine 1% w Epi 1:100,000 Inj ONE (13:01)
[2018-11-02] MEDS ORDERED: Lidocaine 1% w Epi 1:100,000 Inj INFIL ONE (13:06)
--- NOTE | 2018-11-02 13:24 | ED PDOC ---
HPI: Trauma/Fall - HPI Time Seen by Provider: 11/02/18 11:42 Chief Complaint (Nursing): Headache Chief Complaint (Provider): fall injury History Per: Patient History/Exam Limitations: no limitations Onset/Duration Of Symptoms: Hrs (today) Associated Symptoms: denies: Dizziness, LOC Additional Complaint(s): Evan Valdez is a 68 year old male, with a past medical history of diabetes and HTN, who presents to the emergency department for evaluation of a fall injury onset today. Patient states earlier today he was outside running to the [place] office because it was closing when he accidentally fell forward and struck his head onto the sidewalk. Patient reports no LOC and denies any other injuries, chest pain, dizziness, abdominal pain, weakness or other medical complaints. His tetanus is up to date. PMD: Dakota Mccoy Past Medical History Reviewed: Historical Data, Nursing Documentation, Vital Signs Vital Signs: Last Vital Signs Temp 98.0 F 11/02/18 11:32 Pulse 86 11/02/18 11:32 Resp 18 11/02/18 11:32 BP 139/80 11/02/18 11:32 Pulse Ox 98 11/02/18 11:43 - Medical History PMH: Diabetes (Type 2), Deep Vein Thrombosis (x4 yrs ago but resolved), HTN, Hypercholesterolemia Denies: Chronic Kidney Disease - Surgical History Surgical History: Hernia Repair (hemiorrhaphy) - Family History Family History: States: Unknown Family Hx - Social History Ex-Smoker (has not smoked in the last 12 months): Yes Alcohol: None Drugs: Denies - Immunization History Hx Tetanus Toxoid Vaccination: Yes Hx Influenza Vaccination: Yes Hx Pneumococcal Vaccination: Yes - Home Medications Home Medications: Ambulatory Orders Medication Instructions Recorded Lisinopril [Zestril] 10 mg PO DAILY 07/31/16 MetFORMIN [glucOPHAGE] 1,000 mg PO DAILY 07/31/16 Pravastatin Sodium [Pravachol] 10 mg PO DAILY 07/31/16 Glimepiride [Amaryl] 4 mg PO BID 08/09/16 Cetirizine HCl [Zyrtec] 1 tab PO HS 01/24/18 Loratadine [Claritin] 10 mg PO DAILY 01/24/18 SITagliptin [Januvia] 100 mg PO DAILY 01/24/18 Acetaminophen [Tylenol] 650 mg PO Q4 PRN #100 capsule 09/07/18 - Allergies Allergies/Adverse Reactions: Allergies Allergy/AdvReac Type Severity Reaction Status Date / Time No Known Allergies Allergy Verified 11/02/18 11:43 Review of Systems ROS Statement: Except As Marked, All Systems Reviewed And Found Negative Cardiovascular: Negative for: Chest Pain Gastrointestinal: Negative for: Abdominal Pain Neurological: Positive for: Headache. Negative for: Weakness, Dizziness Physical Exam - Reviewed Nursing Documentation Reviewed: Yes Vital Signs Reviewed: Yes - Physical Exam Appears: Positive for: No Acute Distress Head Exam: Positive for: NORMAL INSPECTION, NORMOCEPHALIC. Negative for: ATRAUMATIC ( Right side of forehead with a 3cm linear laceration w/o active bleeding.) Skin: Positive for: Normal Color, Warm, Dry Eye Exam: Positive for: Normal appearance, EOMI, PERRL ENT: Positive for: Normal ENT Inspection Neck: Positive for: Normal, Painless ROM, Supple Cardiovascular/Chest: Positive for: Regular Rate, Rhythm. Negative for: Murmur Respiratory: Positive for: Normal Breath Sounds. Negative for: Respiratory Distress Gastrointestinal/Abdominal: Positive for: Normal Exam, Soft. Negative for: Tenderness Back: Positive for: Normal Inspection. Negative for: L CVA Tenderness, R CVA Tenderness, Vertebral Tenderness Extremity: Positive for: Normal ROM (Actively moving all extremities w/o difficulty). Negative for: Deformity, Swelling Neurologic/Psych: Positive for: Alert, Oriented (x3), Gait (steady and unassisted ) - ECG O2 Sat by Pulse Oximetry: 98 (RA) Pulse Ox Interpretation: Normal Medical Decision Making Medical Decision Making: Time: 11:42 Initial Impression: head injury s/p fall Initial Plan: --Head w/o contrast [CT] --Xylocaine 1% w Epi 3 ml INFIL --Reevaluation 13:[address] FINDINGS: HEMORRHAGE: No intracranial hemorrhage. BRAIN: No mass effect or edema. Atrophy. Chronic microvascular ischemic changes. VENTRICLES: Unremarkable. No hydrocephalus. CALVARIUM: Unremarkable. PARANASAL SINUSES: Unremarkable as visualized. No significant inflammatory changes. MASTOID AIR CELLS: Unremarkable as visualized. No inflammatory changes. OTHER FINDINGS: Right frontal scalp swelling/laceration. IMPRESSION: Right frontal scalp swelling/laceration. No calvarial fracture. No acute intracranial pathology or hemorrhage. Age-related changes. No significant interval change. Scribe Attestation: Documented by Sumit Castillo, acting as a scribe for Chemo Mejia PA-C Provider Scribe Attestation: All medical record entries made by the Scribe were at my direction and personally dictated by me. I have reviewed the chart and agree that the record accurately reflects my personal performance of the history, physical exam, medical decision making, and the department course for this patient. I have also personally directed, reviewed, and agree with the discharge instructions and disposition. Procedures - Time-Out Type of Procedure: laceration repair Site of Procedure: forehead Correct Patient (with visual ID + MR# on ID Band): Yes Correct Procedure: Yes Correct Site Marked: Yes PA/Tech: Jackie MATTHEWS - Laceration/Wound Repair Laceration repair Wound Length (cm): 3 Wound's Depth, Shape: superficial, linear Wound Explored: clean Irrigated w/ Saline (ccs): 100 Betadine Prep?: Yes Anesthesia: Lidocaine w/ Epi Volume Anesthetic (ccs): 5 Wound Debrided: minimal Wound Repaired With: Sutures Suture Size/Type: 6:0, proline Number of Sutures: 7 Layer Closure?: No Wound Complexity: Simple Disposition - Clinical Impression Clinical Impression: Head injury, Forehead laceration - Patient ED Disposition Is Patient to be Admitted: No - Disposition Referrals: [facility] [Outside] Disposition: Routine/Home Disposition Time: 14:21 Condition: STABLE Additional Instructions: SUTURE REMOVAL IN 7 DAYS FOLLOW UP WITH [facility] FOR FURTHER EVALUATION RETURN TO ED IMMEDIATELY IF SYMPTOMS WORSEN EVAN VALDEZ, thank you for letting us take care of you today. Your provid er was Cathie Dean MD and you were treated for FALL. The emergency medical care you received today was directed at your acute symptoms. If you were prescribed any medication, please fill it and take as directed. It may take several days for your symptoms to resolve. Return to the Emergency Department if your symptoms worsen, do not improve, or if you have any other problems. Please contact your doctor or call one of the physicians/clinics you have been referred to that are listed on the Patient Visit Information form that is included in your discharge packet. Bring any paperwork you were given at discharge with you along with any medications you are taking to your follow up visit. Our treatment cannot replace ongoing medical care by a primary care provider outside of the emergency department. Thank you for allowing the [facility] team to be part of your care today. If you had an X-Ray or CT scan: A Radiologist will review the ED reading if any change in treatment is needed we will contact you. If you had a blood, urine, or wound culture: It will take several days for the results, if any change in treatment is needed we will contact you. If you had an STI test: It will take 48 hours for the results. Please call after 1 week if you have not heard back. Forms: [employer] (Lithuanian)
--- NOTE | 2018-11-02 13:30 | CT ---
Date of service: 11/02/2018 PROCEDURE: CT HEAD WITHOUT CONTRAST. HISTORY: trauma COMPARISON: CT head dated 09/07/2018. TECHNIQUE: Axial computed tomography images were obtained through the head/brain without intravenous contrast. Radiation dose: Total exam DLP = 912.08 mGy-cm. This CT exam was performed using one or more of the following dose reduction techniques: Automated exposure control, adjustment of the mA and/or kV according to patient size, and/or use of iterative reconstruction technique. FINDINGS: HEMORRHAGE: No intracranial hemorrhage. BRAIN: No mass effect or edema. Atrophy. Chronic microvascular ischemic changes. VENTRICLES: Unremarkable. No hydrocephalus. CALVARIUM: Unremarkable. PARANASAL SINUSES: Unremarkable as visualized. No significant inflammatory changes. MASTOID AIR CELLS: Unremarkable as visualized. No inflammatory changes. OTHER FINDINGS: Right frontal scalp swelling/laceration. IMPRESSION: Right frontal scalp swelling/laceration. No calvarial fracture. No acute intracranial pathology or hemorrhage. Age-related changes. No significant interval change.
[2018-11-02] MEDS ORDERED: Bacitracin OINT 15GM TOP STA (14:23)
== END 2018-11-02 15:26 | disposition home or self-care (01) ==
LOC: H.ER 11:29
DX: S09.90XA Unspecified injury of head, initial encounter (principal); S01.81XA Laceration without foreign body of other part of head, initial encounter; E11.9 Type 2 diabetes mellitus without complications; I10 Essential (primary) hypertension; Z79.84 Long term (current) use of oral hypoglycemic drugs; Z86.718 Personal history of other venous thrombosis and embolism; Z87.891 Personal history of nicotine dependence; E78.00 Pure hypercholesterolemia, unspecified; W01.0XXA Fall on same level from slipping, tripping and stumbling without subsequent striking against object, initial encounter

== ENCOUNTER 2018-11-05 08:45 | Emergency (ER) | payer MEDICARE ==
[2018-11-05 08:45] VITALS: BMI 31.5
[2018-11-05 08:48] VITALS: TEMP 98.3
--- NOTE | 2018-11-05 09:56 | ED PDOC ---
HPI: Eye Injury/Pain Time Seen by Provider: 11/05/18 09:04 Chief Complaint (Nursing): Eye Problem Chief Complaint (Provider): Right eye pain History Per: Patient History/Exam Limitations: no limitations Onset/Duration Of Symptoms: Days (2) Current Symptoms Are (Timing): Still Present Quality: "Pain" Associated Symptoms: Pain, Swelling. denies: Decreased Vision, Itching, Discharge From Eye Additional Complaint(s): 68 year old male with PMHx of HTN and diabetes presents to the ED for an evaluation of his right eye pain. Patient states he fell 2 days ago and developed redness, swelling and pain on the right eye with stitches intact on his right side of the forehead. Currently, patient complaints of dizziness. Othe rwise he denies fever, chills, discharge from the eye, foreign body or itchiness. PMD: Non H Provider Past Medical History Reviewed: Historical Data, Nursing Documentation, Vital Signs Vital Signs: Last Vital Signs Temp 98.3 F 11/05/18 08:47 Pulse 79 11/05/18 08:47 Resp 19 11/05/18 08:47 BP 150/77 11/05/18 08:47 Pulse Ox 98 11/05/18 08:47 - Medical History PMH: Diabetes (Type 2), Deep Vein Thrombosis (x4 yrs ago but resolved), HTN, Hypercholesterolemia Denies: Chronic Kidney Disease - Surgical History Surgical History: Hernia Repair (hemiorrhaphy) - Family History Family History: States: Unknown Family Hx - Social History Current smoker - smoking cessation education provided: No Alcohol: None Drugs: Denies - Immunization History Hx Tetanus Toxoid Vaccination: Yes Hx Influenza Vaccination: Yes Hx Pneumococcal Vaccination: Yes - Home Medications Home Medications: Ambulatory Orders Medication Instructions Recorded Lisinopril [Zestril] 10 mg PO DAILY 07/31/16 MetFORMIN [glucOPHAGE] 1,000 mg PO DAILY 07/31/16 Pravastatin Sodium [Pravachol] 10 mg PO DAILY 07/31/16 Glimepiride [Amaryl] 4 mg PO BID 08/09/16 Cetirizine HCl [Zyrtec] 1 tab PO HS 01/24/18 Loratadine [Claritin] 10 mg PO DAILY 01/24/18 SITagliptin [Januvia] 100 mg PO DAILY 01/24/18 Acetaminophen [Tylenol] 650 mg PO Q4 PRN #100 capsule 09/07/18 Ibuprofen [Motrin] 600 mg PO Q6H PRN #20 tab 11/05/18 - Allergies Allergies/Adverse Reactions: Allergies Allergy/AdvReac Type Severity Reaction Status Date / Time No Known Allergies Allergy Verified 11/02/18 11:43 Review of Systems ROS Statement: Except As Marked, All Systems Reviewed And Found Negative Constitutional: Negative for: Fever, Chills Eyes: Positive for: Pain, Redness. Negative for: Vision Change Respiratory: Negative for: Cough, Shortness of Breath Skin: Negative for: Rash Neurological: Positive for: Dizziness Physical Exam - Reviewed Nursing Documentation Reviewed: Yes Vital Signs Reviewed: Yes - Physical Exam Appears: Positive for: Well, Non-toxic, No Acute Distress Head Exam: Positive for: ATRAUMATIC, NORMAL INSPECTION, NORMOCEPHALIC Skin: Positive for: Warm, Dry. Negative for: Normal Color (healing wound on right forehead), Rash Eye Exam: Positive for: Normal appearance, EOMI, PERRL, Other (periorbital healing ecchymosis on right eye) ENT: Positive for: Normal ENT Inspection Neck: Positive for: Normal, Painless ROM, Supple Cardiovascular/Chest: Positive for: Regular Rate, Rhythm Respiratory: Positive for: Normal Breath Sounds. Negative for: Decreased Breath Sounds, Respiratory Distress Gastrointestinal/Abdominal: Positive for: Normal Exam, Soft. Negative for: Tenderness, Guarding, Rebound Back: Positive for: Normal Inspection Extremity: Positive for: Normal ROM. Negative for: Tenderness, Pedal Edema, Deformity Neurologic/Psych: Positive for: Alert, Oriented (x3). Negative for: Motor/Sensory Deficits - ECG O2 Sat by Pulse Oximetry: 98 (RA) Pulse Ox Interpretation: Normal Medical Decision Making Medical Decision Making: Time: 930 Initial Impression: right eye pain Initial Plan: Head w/o contrast CT Glucose, Blood, POC R orbit XR Reevaluation Time: 1050 PROCEDURE: CT HEAD WITHOUT CONTRAST. FINDINGS: HEMORRHAGE: No parenchymal, subarachnoid or extra-axial hemorrhage. BRAIN: There appears to be mild chronic periventricular white matter ischemic changes. Moderate to fairly significant central volume loss evidenced by disproportiona te enlargement of ventricles compared sulci.. VENTRICLES: No obstructive hydrocephalus. CALVARIUM: Calvarium intact. There appears to be mild right lateral and supraorbital soft tissue swelling extending into the-frontotemporal scalp region as well as medially over the bridge of the nose and glabella. PARANASAL SINUSES: There is small focal area polypoid like mucosal thickening superior and medial aspect of the right maxillary antrum. MASTOID AIR CELLS: Unremarkable as visualized. No inflammatory changes. OTHER FINDINGS: None. IMPRESSION: Mild chronic periventricular white matter ischemic changes. Moderate central volume loss. Mild predominately right-sided facial soft tissue swelling as detailed above. Time: 1102 Orbit X-ray Scribe Attestation: Documented by Silas Chung, acting as a scribe for Keysha Cabrera MD. Provider Scribe Attestation: All medical record entries made by the Scribe were at my direction and personally dictated by me. I have reviewed the chart and agree that the record accurately reflects my personal performance of the history, physical exam, medical decision making, and the department course for this patient. I have also personally directed, reviewed, and agree with the discharge instructions and disposition. Disposition - Clinical Impression Clinical Impression: Head injury, Periorbital ecchymosis - Disposition Referrals: Dakota Mccoy MD [Family Provider] - Condition: STABLE Prescriptions: Ibuprofen [Motrin] 600 mg PO Q6H PRN #20 tab PRN Reason: Pain, Moderate (4-7) Instructions: Postconcussion Syndrome, Black Eye Forms: [employer] (Scottish)
--- NOTE | 2018-11-05 10:53 | CT ---
Date of service: 11/05/2018 PROCEDURE: CT HEAD WITHOUT CONTRAST. HISTORY: Dizziness, status post head injury. COMPARISON: Comparison made with CT scan brain 11/02/2018. TECHNIQUE: Contiguous helical/transaxial computed tomography images were obtained through the head/brain without intravenous contrast. Radiation dose: Total exam DLP = 903.83 mGy-cm. This CT exam was performed using one or more of the following dose reduction techniques: Automated exposure control, adjustment of the mA and/or kV according to patient size, and/or use of iterative reconstruction technique. FINDINGS: HEMORRHAGE: No parenchymal, subarachnoid or extra-axial hemorrhage. BRAIN: There appears to be mild chronic periventricular white matter ischemic changes. Moderate to fairly significant central volume loss evidenced by disproportionate enlargement of ventricles compared sulci.. VENTRICLES: No obstructive hydrocephalus. CALVARIUM: Calvarium intact. There appears to be mild right lateral and supraorbital soft tissue swelling extending into the-frontotemporal scalp region as well as medially over the bridge of the nose and glabella. PARANASAL SINUSES: There is small focal area polypoid like mucosal thickening superior and medial aspect of the right maxillary antrum. MASTOID AIR CELLS: Unremarkable as visualized. No inflammatory changes. OTHER FINDINGS: None. IMPRESSION: Mild chronic periventricular white matter ischemic changes. Moderate central volume loss. Mild predominately right-sided facial soft tissue swelling as detailed above.
[2018-11-05 12:13] VITALS: BP 135/73; PULSE 71; RESP 18; O2SAT 99
--- NOTE | 2018-11-05 15:06 | RAD ---
Date of service: 11/05/2018 PROCEDURE: X-rays of the facial bones HISTORY: Fall COMPARISON: No prior similar study available for comparison TECHNIQUE: Six views of the facial bones were obtained. FINDINGS: No radiographic evidence of acute displaced fracture. No evidence of air-fluid level in the visualize sinuses. IMPRESSION: No definite radiographic evidence of acute displaced fracture.
== END 2018-11-05 12:11 | disposition home or self-care (01) ==
LOC: H.ER 08:45
DX: S09.90XA Unspecified injury of head, initial encounter (principal); S00.10XA Contusion of unspecified eyelid and periocular area, initial encounter; W19.XXXA Unspecified fall, initial encounter; Y92.89 Other specified places as the place of occurrence of the external cause; E11.9 Type 2 diabetes mellitus without complications; E78.00 Pure hypercholesterolemia, unspecified; I10 Essential (primary) hypertension; Z79.84 Long term (current) use of oral hypoglycemic drugs; Z86.718 Personal history of other venous thrombosis and embolism